=== PATIENT | female | born 1940 | race Caucasian/White ===

== ENCOUNTER 2018-07-12 18:12 | Emergency (ER) | payer MEDICARE ==
[~2018-07-12] VITALS: Ht 149.9 cm; Wt 59.0 kg
--- OUTSIDE RECORDS SUMMARY | 2018-07-12 18:14 | XMS REPORT ---
Author Author [facility] Address Unknown Phone Unavailable Care Team Providers Care Bookkeeping Manager Name Role Phone Unavailable Unavailable Payers Payer Name Policy Type Policy Number Effective Date Expiration Date Problems This patient has no known problems. Allergies, Adverse Reactions, Alerts Allergy Name Allergy Type Status Severity Reaction(s) Onset Date Inactive Date Treating Clinician Comments No Known Allergies DA Active U 2017-11-25 00:00:00 Medications This patient has no known medications.
--- OUTSIDE RECORDS SUMMARY | 2018-07-12 18:14 | XMS REPORT | Clinical Summary ---
Author Author [facility] Address Unknown Phone Unavailable Care Team Providers Care Green Promotions Specialist Name Role Phone Asked, No Pcp PCP Unavailable Allergies No Known Allergies Medications No known medications Active Problems Problem Noted Date Primary osteoarthritis of left hip 01/13/2016 Family History Medical History Relation Name Comments Heart disease Father Cancer Mother Relation Name Status Comments Father Mother Social History Date Tobacco Use Types Packs/Day Years Used Never Assessed Sex Assigned at Date Recorded Not on file Industry Job Start Date Occupation Not on file Not on file Not on file Travel End Travel History Travel Start No recent travel history available. Last Filed Vital Signs Not on file Plan of Treatment Health Maintenance Due Date Last Done Comments BREAST CANCER SCREENING 1992 COLON CANCER SCREENING 1992 SHINGLES VACCINES (#1) 1992 65+ PNEUMOCOCCAL VACCINE 10/22/2007 (1 of 2 - PCV13) PNEUMOCOCCAL 10/22/2007 POLYSACCHARIDE VACCINE AGE 65 AND OVER INFLUENZA VACCINE 11/22/2017 Results Not on fileafter 07/11/2017 Insurance Payer Benefit Subscriber ID Type Phone Address Plan / Group MEDICARE MEDICARE xxxxxxxxxx Medicare [place], [place] PART A AND B Advance Directives Patient has advance care planning documents on file. For more information, jac e contact: Rob Tabares [address] [place] [address]
[2018-07-12] MEDS ORDERED: LORAZEPAM INJ 2 MG/ML VIAL IV ONE (18:45)
--- NOTE | 2018-07-12 19:20 | NUR ---
patient is agitated and [id number], per daughter at bedside, this is her normal state and has been diagnosed with alzheimers. we are unable to get vital signs due to patients refusal, per daughter, she states home health nurse is never able to obtain vital signs, this is not new behavior for her. md is aware and 1mg ativan was adminsitered previous shift. i had a discussion with current md about patients condition, md will proceed with further investigation at bedside with family
[2018-07-12] MEDS ORDERED: ZIPRASIDONE 20 MG VIAL IM PRN (21:00)
[2018-07-12] MEDS ORDERED: WATER STERILE 10 ML VIAL INJ PRN (21:15)
--- NOTE | 2018-07-13 00:13 | Diagnostic Imaging Report ---
History:Fall Comparison studies: None Technique: Axial images were obtained from the skull base to the vertex. Coronal and sagittal images reconstructed from the axial data. Dose modulation, iterative reconstruction, and/or weight based adjustment of the mA/kV was utilized to reduce the radiation dose to as low as reasonably achievable. Intravenous contrast: None Findings: Scalp/skull: No abnormalities. Extra-axial spaces: No masses. No fluid collections. Brain sulci: Moderate prominent. Ventricles: Moderate compensatory dilatation. No hydrocephalus. Parenchyma: Subtle hypodensities in the supratentorial white matter are small vessel ischemic changes. No masses, hemorrhage, acute or chronic cortical vascular insults. Sellar/suprasellar region: No abnormalities. Craniocervical junction: Patent foramen magnum. No Chiari one malformation. Incidental findings: Atherosclerotic calcifications in the carotid siphons . Impression: No acute abnormalities. Chronic findings: 1. Moderate generalized volume loss. 2. Mild supratentorial white matter small vessel ischemic changes. Signed by: Dr. Lucian Solis M.D. on 07/13/2018 12:10 AM
--- NOTE | 2018-07-13 00:16 | Diagnostic Imaging Report ---
History: Fall Comparison studies: None Technique: Axial images were obtained through the cervical region.. Coronal and sagittal images reconstructed from the axial data. Dose modulation, iterative reconstruction, and/or weight based adjustment of the mA/kV was utilized to reduce the radiation dose to as low as reasonably achievable. Intravenous contrast: None Findings: Fractures: None. Soft tissues: No gross abnormalities. Atlantoaxial articulation: Intact. Alignment: Normal lordosis. No scoliosis. Cervicomedullary junction: No abnormalities. The foramen magnum is patent. Vertebrae: Bones are mildly demineralized. No infection or neoplasm. Degenerative changes: Moderately degenerated discs from C4 through C7. Mild facet arthrosis throughout the cervical region, worse on the left at C3-4. Foraminal stenosis, mild left at C3-4, right at C4-5, bilaterally at C5-6 and C6-7 due to facet and uncoarthrosis. Spinal canal stenosis is moderate at C4-5, C5-6 and mild at C6-7 due to disc osteophyte complexes. IMPRESSION: 1. No acute abnormalities. 2. Cannot adequately evaluate for ligament, spinal cord and or vascular abnormalities. 3. Degenerative changes as described Signed by: Dr. Lucian Solis M.D. on 07/13/2018 12:13 AM
--- NOTE | 2018-07-13 00:26 | Diagnostic Imaging Report ---
Examination: Single AP view of the chest. COMPARISON: None. INDICATION: Status post fall IMPRESSION: 1. Lines and Tubes: None 2. Lungs are well-inflated. Mild prominence of the interstitial markings, likely reflecting chronic interstitial changes. No consolidation or effusion. 3. Cardiomediastinal silhouette is normal. Pulmonary vasculature is normal. Tortuous aorta. 4. Generalized osteopenia. No acute, displaced fracture or dislocation. Signed by: Dr. Mohit Cai M.D. on 07/13/2018 12:23 AM
--- NOTE | 2018-07-13 00:27 | Diagnostic Imaging Report ---
Exam: AP pelvis Clinical History: Status post fall Comparison: None. DISCUSSION: See impression. IMPRESSION: 1. Generalized osteopenia. 2. No acute, displaced fracture or dislocation in this limited AP view. 3. Mild degenerative changes in bilateral hip joints. Degenerative disc changes in the lower lumbosacral spine with mild leftward deviation of the lower lumbar spine, which may be positional. 4. Nonobstructive bowel gas pattern. The staff physician below has personally reviewed this exam on the date of dictation. Signed by: Dr. Mohit Cai M.D. on 07/13/2018 12:24 AM
[2018-07-13 01:00] VITALS: BP 132/77
== END 2018-07-13 01:26 | disposition home or self-care (01) ==
LOC: ER 18:12
DX: S00.83XA Contusion of other part of head, initial encounter (principal); S00.01XA Abrasion of scalp, initial encounter; W18.2XXA Fall in (into) shower or empty bathtub, initial encounter; Y93.E1 Activity, personal bathing and showering; Y92.002 Bathroom of unspecified non-institutional (private) residence as the place of occurrence of the external cause; Z87.891 Personal history of nicotine dependence
CPT/HCPCS: 70450; 71045; 72125; 72170; 99283; J2060; J3486

== ENCOUNTER 2022-08-31 18:17 | Inpatient (IN) | payer MEDICARE ==
[~2022-08-31] VITALS: Ht 149.9 cm; Wt 59.0 kg
[2022-08-31] MEDS ORDERED: SODIUM CHLORIDE 0.9% 1000ML 1,000 ML IV STA ×3 (18:22→18:31)
[2022-08-31] MEDS ORDERED: ACETAMINOPHEN 1000 MG/100 ML IV STA (18:31)
[2022-08-31 18:45] LABS: BASOPHILS # (AUTO) 0.1 (0.0-0.1); BASOPHILS % 0.9 % (0.0-1.0); EOSINOPHILS # (AUTO) 0.2 (0.0-0.4); EOSINOPHILS % 1.6 % (0.0-6.0); HEMATOCRIT 39.2 % (34.2-44.1); HEMOGLOBIN 12.6 g/dL (12.0-16.0); LYMPHOCYTES # (AUTO) 2.8 (1.0-3.2); LYMPHOCYTES % 24.2 % (18.0-39.1); MEAN CORPUSCULAR HEMOGLOBIN 30.4 pg (28-32); MEAN CORPUSCULAR HGB CONC 32.1 g/dL (31-35); MEAN CORPUSCULAR VOLUME 94.5 fL (81-99); MONOCYTES # (AUTO) 0.9 (0.2-0.8); MONOCYTES % 7.6 % (4.4-11.3); NEUTROPHILS # (AUTO) 7.7 (2.1-6.9); NEUTROPHILS % 65.3 % (38.7-80.0); PLATELET COUNT 288 x10e3/uL (140-360); RED BLOOD COUNT 4.15 x10e6/uL (3.6-5.1); RED CELL DISTRIBUTION WIDTH 13.6 % (11.7-14.4)
[2022-08-31] MEDS ORDERED: IOPAMIDOL 370 MG/ML 100 ML INFUS..BTL INJ ONE (18:57)
[2022-08-31] MEDS ORDERED: SODIUM CHLORIDE 0.9% 100 ML ONE (18:57)
[2022-08-31 19:00] LABS: ALBUMIN 3.4 g/dL (3.5-5.0); ALBUMIN/GLOBULIN RATIO 0.9 (0.8-2.0); ALKALINE PHOSPHATASE 85 IU/L (40-150); ANION GAP 16.8 mmol/L (8-16); BLOOD UREA NITROGEN 16 mg/dL (7-26); BUN/CREATININE RATIO 21 (6-25); CALCIUM 9.1 mg/dL (8.4-10.2); CARBON DIOXIDE 23 mmol/L (22-29); CHLORIDE 104 mmol/L (98-107); CREATINE KINASE 79 IU/L (29-168); CREATININE, SERUM 0.76 mg/dL (0.57-1.11); GLUCOSE 127 mg/dL (74-118); POTASSIUM 4.8 mmol/L (3.5-5.1); SODIUM 139 mmol/L (136-145)
[2022-08-31 19:00] LABS: CLARITY,URINE HAZY (CLEAR); COLOR,URINE YELLOW (YELLOW); KETONES,URINE NEGATIVE (NEGATIVE); LEUKOCYTE ESTERASE ,URINE LARGE (NEGATIVE); NITRITE,URINE NEGATIVE (NEGATIVE); PROTEIN,URINE DIPSTICK NEGATIVE (NEGATIVE); URINE UROBILINOGEN 0.2 mg/dL (0.2 - 1)
[2022-08-31 19:06] LABS: ALANINE AMINOTRANSFERASE < 6 IU/L (0-55)
[2022-08-31 19:10] LABS: BACTERIA,URINE MODERATE /HPF
[2022-08-31] MEDS ORDERED: ONDANSETRON HCL INJ 2MG/ML 2ML 2 MG/ML VIAL IV PRN (21:30)
[2022-08-31] MEDS ORDERED: Morphine 2mg Syringe 2 MG/ML SYR IV PRN (21:30)
[2022-08-31 23:05] VITALS: PULSE 94; RESP 22; O2SAT 96
[2022-09-01] VITALS (10 sets, daily range): BP systolic 70–145; BP diastolic 33–97; PULSE 98–110; RESP 18–24; TEMP 97.7–99.3; O2SAT 92–100
[2022-09-01] MEDS: SODIUM CHLORIDE 0.9% 1000ML 1,000 ML IV SCH ×3 (01:26→11:41)
[2022-09-01 04:57] LABS: BASOPHILS % 0.3 % (0.0-1.0); EOSINOPHILS % 0.3 % (0.0-6.0); HEMATOCRIT 35.1 % (34.2-44.1); LYMPHOCYTES # (AUTO) 2.6 (1.0-3.2); LYMPHOCYTES % 22.3 % (18.0-39.1); MEAN CORPUSCULAR HEMOGLOBIN 30.3 pg (28-32); MEAN CORPUSCULAR HGB CONC 31.3 g/dL (31-35); MEAN CORPUSCULAR VOLUME 96.7 fL (81-99); MONOCYTES # (AUTO) 1.2 (0.2-0.8); MONOCYTES % 10.2 % (4.4-11.3); NEUTROPHILS # (AUTO) 7.7 (2.1-6.9); NEUTROPHILS % 66.6 % (38.7-80.0); PLATELET COUNT 247 x10e3/uL (140-360); RED BLOOD COUNT 3.63 x10e6/uL (3.6-5.1); RED CELL DISTRIBUTION WIDTH 13.7 % (11.7-14.4)
[2022-09-01 05:26] LABS: ALKALINE PHOSPHATASE 70 IU/L (40-150); ANION GAP 13.4 mmol/L (8-16); BLOOD UREA NITROGEN 12 mg/dL (7-26); BUN/CREATININE RATIO 16 (6-25); CALCIUM 8.7 mg/dL (8.4-10.2); CARBON DIOXIDE 21 mmol/L (22-29); CHLORIDE 113 mmol/L (98-107); CREATININE, SERUM 0.76 mg/dL (0.57-1.11); GLUCOSE 102 mg/dL (74-118); POTASSIUM 4.4 mmol/L (3.5-5.1); SODIUM 143 mmol/L (136-145)
[2022-09-01 05:27] LABS: ALANINE AMINOTRANSFERASE < 6 IU/L (0-55)
[2022-09-01 06:03] LABS: CREATINE KINASE MB 18.5 ng/mL (0-5.0)
[2022-09-01] MEDS ORDERED: SIMETHICONE 80 MG CHEW PO PRN (08:30)
[2022-09-01] MEDS ORDERED: DOCUSATE SODIUM 100 MG CAP PO PRN (08:30)
[2022-09-01 08:43] LABS: CHOL/HDL RATIO 5.7 (3.0-3.6)
[2022-09-01] MEDS ORDERED: ASPIRIN 325 MG TAB PO SCH (09:00)
[2022-09-01] MEDS ORDERED: ENOXAPARIN SOD INJ 60 MG/0.6 ML SYR SC SCH (09:00)
[2022-09-01] MEDS ORDERED: DEPAKOTE ER250 MG PO (10:23)
[2022-09-01] MEDS ORDERED: METHOCARBAMOL1000 MG PO (10:23)
[2022-09-01 14:03] LABS: CREATINE KINASE MB 15.6 ng/mL (0-5.0)
[2022-09-01] MEDS ORDERED: ACETAMINOPHEN 325 MG SUPP PR PRN (14:30)
[2022-09-01] MEDS ORDERED: ACETAMINOPHEN 650 MG SUPP PR PRN (14:30)
[2022-09-01] MEDS: FAMOTIDINE 20 MG TAB PO SCH (17:12)
[2022-09-01] MEDS ORDERED: BISACODYL 10 MG SUPP PR PRN (20:45)
[2022-09-01] MEDS ORDERED: METHOCARBAMOL 500 MG PO SCH (21:00)
[2022-09-01] MEDS: ATORVASTATIN 40 MG TAB PO SCH (21:11)
[2022-09-01] MEDS: ALPRAZOLAM 0.5 MG TAB PO PRN (21:11)
[2022-09-01] MEDS: DIVALPROEX SODIUM 125 MG TABDR...ER PO SCH (21:11)
[2022-09-01] MEDS: METHOCARBAMOL 500 MG TAB PO SCH (21:11)
[2022-09-01] MEDS: QUETIAPINE FUMARATE 25 MG TAB PO SCH (21:12)
[2022-09-02] VITALS (8 sets, daily range): BP systolic 84–115; BP diastolic 53–85; PULSE 90–110; RESP 18–24; TEMP 98.1–100.9; O2SAT 93–99
[2022-09-02] MEDS: ACETAMINOPHEN 325 MG TAB PO PRN (05:58)
[2022-09-02 07:44] LABS: CREATINE KINASE MB 4.9 ng/mL (0-5.0)
[2022-09-02] MEDS ORDERED: METOPROLOL SUCCINATE 25 MG TAB XL PO SCH (09:00)
[2022-09-02] MEDS: ENOXAPARIN SOD INJ 40 MG/0.4 ML SYR SC SCH (09:32)
[2022-09-02] MEDS: FAMOTIDINE 20 MG TAB PO SCH ×2 (09:33→16:45)
[2022-09-02] MEDS: METHOCARBAMOL 500 MG TAB PO SCH ×2 (09:34→20:48)
[2022-09-02] MEDS: ASPIRIN 81 MG CHEW TAB PO SCH (09:34)
[2022-09-02] MEDS ORDERED: SODIUM CHLORIDE 0.9% 250ML 250 ML IV ONE (11:15)
[2022-09-02] MEDS: MIDODRINE HCL 5 MG TABLET PO SCH ×2 (11:21→16:44)
[2022-09-02] MEDS: ATORVASTATIN 40 MG TAB PO SCH (20:49)
[2022-09-02] MEDS: ALPRAZOLAM 0.5 MG TAB PO PRN (20:49)
[2022-09-02] MEDS: QUETIAPINE FUMARATE 25 MG TAB PO SCH (21:00)
[2022-09-02] MEDS: DIVALPROEX SODIUM 125 MG TABDR...ER PO SCH (21:00)
[2022-09-03] VITALS (13 sets, daily range): BP systolic 81–114; BP diastolic 39–94; PULSE 85–101; RESP 18–24; TEMP 98–99.7; O2SAT 91–99
[2022-09-03] MEDS: SODIUM CHLORIDE 0.9% 1000ML 1,000 ML IV SCH (05:56)
[2022-09-03 07:13] LABS: BASOPHILS % 0.3 % (0.0-1.0); EOSINOPHILS # (AUTO) 0.2 (0.0-0.4); EOSINOPHILS % 1.4 % (0.0-6.0); HEMATOCRIT 30.3 % (34.2-44.1); HEMOGLOBIN 9.5 g/dL (12.0-16.0); LYMPHOCYTES # (AUTO) 2.9 (1.0-3.2); LYMPHOCYTES % 23.7 % (18.0-39.1); MEAN CORPUSCULAR HEMOGLOBIN 30.1 pg (28-32); MEAN CORPUSCULAR HGB CONC 31.4 g/dL (31-35); MEAN CORPUSCULAR VOLUME 95.9 fL (81-99); MONOCYTES # (AUTO) 1.1 (0.2-0.8); MONOCYTES % 8.7 % (4.4-11.3); NEUTROPHILS % 65.4 % (38.7-80.0); PLATELET COUNT 176 x10e3/uL (140-360); RED BLOOD COUNT 3.16 x10e6/uL (3.6-5.1); RED CELL DISTRIBUTION WIDTH 14.6 % (11.7-14.4)
[2022-09-03] MEDS ORDERED: MIDODRINE HCL 5 MG TABLET PO SCH (08:00)
[2022-09-03 08:14] LABS: MAGNESIUM 1.9 MG/DL (1.3-2.1); PHOSPHORUS 2.6 MG/DL (2.3-4.7)
[2022-09-03 08:15] LABS: ANION GAP 12.5 mmol/L (8-16); CALCIUM 7.8 mg/dL (8.4-10.2); CREATININE, SERUM 0.65 mg/dL (0.57-1.11); POTASSIUM 3.5 mmol/L (3.5-5.1)
[2022-09-03] MEDS: METHOCARBAMOL 500 MG TAB PO SCH ×2 (08:32→20:54)
[2022-09-03] MEDS: ASPIRIN 81 MG CHEW TAB PO SCH (08:32)
[2022-09-03] MEDS: FAMOTIDINE 20 MG TAB PO SCH ×2 (08:32→16:49)
[2022-09-03] MEDS: ENOXAPARIN SOD INJ 40 MG/0.4 ML SYR SC SCH (08:33)
[2022-09-03] MEDS: ALBUTEROL/IPRATROPIUM 3 ML NEB NEB PRN ×2 (09:45→21:40)
[2022-09-03] MEDS ORDERED: FUROSEMIDE INJ 10 MG/ML 2 ML VIAL IV ONE (11:00)
[2022-09-03] MEDS: MIDODRINE HCL 5 MG TABLET PO SCH ×2 (12:10→16:48)
[2022-09-03] MEDS: ACETAMINOPHEN 325 MG TAB PO PRN (16:48)
[2022-09-03] MEDS: DIVALPROEX SODIUM 125 MG TABDR...ER PO SCH (20:54)
[2022-09-03] MEDS: QUETIAPINE FUMARATE 25 MG TAB PO SCH (20:54)
[2022-09-03] MEDS: ATORVASTATIN 40 MG TAB PO SCH (20:54)
[2022-09-04] VITALS (8 sets, daily range): BP systolic 88–119; BP diastolic 53–63; PULSE 74–99; RESP 18–24; TEMP 98.3–99.9; O2SAT 92–100
[2022-09-04] MEDS: ALBUTEROL/IPRATROPIUM 3 ML NEB NEB PRN ×2 (07:28→12:41)
[2022-09-04] MEDS ORDERED: Docusate Sodium PO (08:28)
[2022-09-04] MEDS ORDERED: CEPHALEXIN500 MG PO (08:28)
[2022-09-04] MEDS ORDERED: FAMOTIDINE20 MG PO (08:28)
[2022-09-04] MEDS ORDERED: MIDODRINE HCL5 MG PO (08:28)
[2022-09-04] MEDS ORDERED: ASPIRIN CHEW81 MG PO (08:28)
[2022-09-04] MEDS ORDERED: ZITHROMAX500 MG PO (08:28)
[2022-09-04] MEDS ORDERED: ATORVASTATIN CA40 MG PO (08:28)
[2022-09-04] MEDS: ASPIRIN 81 MG CHEW TAB PO SCH (08:43)
[2022-09-04] MEDS: METHOCARBAMOL 500 MG TAB PO SCH (08:44)
[2022-09-04] MEDS: MIDODRINE HCL 5 MG TABLET PO SCH ×2 (08:44→11:49)
[2022-09-04] MEDS: FAMOTIDINE 20 MG TAB PO SCH (08:44)
[2022-09-04] MEDS: ACETAMINOPHEN 325 MG TAB PO PRN (08:44)
[2022-09-04] MEDS: ENOXAPARIN SOD INJ 40 MG/0.4 ML SYR SC SCH (08:45)
== END 2022-09-04 13:00 | disposition hospice, home (50) | DRG 871 ==
LOC: ER 18:22 → ERHOLD 21:28 → MED/SURG2 22:19
PROVIDERS: ADMIT Internal Medicine; ATTEND Internal Medicine
DX: A41.9 Sepsis, unspecified organism (principal); G93.41 Metabolic encephalopathy; I21.4 Non-ST elevation (NSTEMI) myocardial infarction; J18.9 Pneumonia, unspecified organism; N39.0 Urinary tract infection, site not specified; E87.20 Acidosis, unspecified; R65.20 Severe sepsis without septic shock; G30.9 Alzheimer's disease, unspecified; F02.80 Dementia in other diseases classified elsewhere, unspecified severity, without behavioral disturbance, psychotic disturbance, mood disturbance, and anxiety; E78.5 Hyperlipidemia, unspecified; I67.1 Cerebral aneurysm, nonruptured; K59.09 Other constipation; F01.50 Vascular dementia, unspecified severity, without behavioral disturbance, psychotic disturbance, mood disturbance, and anxiety; Z20.822 Contact with and (suspected) exposure to COVID-19; Z66 Do not resuscitate; Z74.01 Bed confinement status; Z87.891 Personal history of nicotine dependence; Z79.82 Long term (current) use of aspirin
CPT/HCPCS: 36415; 51700; 70496; 70498; 71045; 80048; 80053; 80061; 81001; 82550; 82553; 83605; 83735; 83880; 84100; 84484; 85025; 87040; 93005; 93306; 94799; 95819; 99284; J1650; J1940; J2543; J7030; J7050; Q9967